=== PATIENT | male | born 1950 ===

== ENCOUNTER 2020-08-05 14:23 | Outpatient (CLI) | payer OTHER | END 2020-08-05 14:59 | disposition home or self-care (01) | LOC: MRI 14:23 | PROVIDERS: ATTEND Orthopaedic Surgery | DX: M25.511 Pain in right shoulder (principal); M25.512 Pain in left shoulder; M75.121 Complete rotator cuff tear or rupture of right shoulder, not specified as traumatic | CPT/HCPCS: 73221 ==